=== PATIENT | male | born 1985 | race Hispanic/Latino ===

== ENCOUNTER 2018-09-13 17:55 | Emergency (ER) | payer SELFPAY ==
[2018-09-13 18:56] VITALS: BP 122/74
--- NOTE | 2018-09-13 21:14 | Emergency Department Report ---
ED ENT HPI - General Chief complaint: Dental/Oral Stated complaint: TOOTH PAIN Time Seen by Provider: 09/13/18 20:11 Source: patient Mode of arrival: Ambulatory Limitations: No Limitations - History of Present Illness Initial comments: Patient is a 32-year-old male presents to the emergency room with complaints of left lower dental pain that began a year ago. He states that it comes and goes. he states this episode began a week ago. He states that he previously had a cap on this tooth, but it fell off. He states he has not seen a dentist in 5 ye ars. He states he needs a tooth extraction on that tooth. Denies any fever or facial swelling. He denies any past medical history allergies medications. - Related Data Previous Rx's Medication Instructions Recorded Last Taken Type Acetaminophen/Codeine [Tylenol 1 tab PO Q6H PRN #10 tab 09/13/18 Unknown Rx /Codeine # 3 tab] Ibuprofen [Motrin 800 MG tab] 800 mg PO Q8HR PRN #20 tablet 09/13/18 Unknown Rx Penicillin Vk [Veetids TAB] 500 mg PO QID 7 Days #56 tablet 09/13/18 Unknown Rx Allergies Allergy/AdvReac Type Severity Reaction Status Date / Time No Known Allergies Allergy Unverified 09/13/18 17:57 ED Dental HPI - General Chief complaint: Dental/Oral Stated complaint: TOOTH PAIN Time Seen by Provider: 09/13/18 20:11 Source: patient Mode of arrival: Ambulatory Limitations: No Limitations - Related Data Previous Rx's Medication Instructions Recorded Last Taken Type Acetaminophen/Codeine [Tylenol 1 tab PO Q6H PRN #10 tab 09/13/18 Unknown Rx /Codeine # 3 tab] Ibuprofen [Motrin 800 MG tab] 800 mg PO Q8HR PRN #20 tablet 09/13/18 Unknown Rx Penicillin Vk [Veetids TAB] 500 mg PO QID 7 Days #56 tablet 09/13/18 Unknown Rx Allergies Allergy/AdvReac Type Severity Reaction Status Date / Time No Known Allergies Allergy Unverified 09/13/18 17:57 ED Review of Systems ROS: Stated complaint: TOOTH PAIN Other details as noted in HPI Comment: All other systems reviewed and negative ED Past Medical Hx - Past Medical History Previous Medical History?: No - Surgical History Past Surgical History?: No - Social History Smoking Status: Heavy Tobacco Smoker Substance Use Type: Alcohol, Marijuana - Medications Home Medications: Home Medications Medication Instructions Recorded Confirmed Last Taken Type Acetaminophen/Codeine [Tylenol 1 tab PO Q6H PRN #10 tab 09/13/18 Unknown Rx /Codeine # 3 tab] Ibuprofen [Motrin 800 MG tab] 800 mg PO Q8HR PRN #20 tablet 09/13/18 Unknown Rx Penicillin Vk [Veetids TAB] 500 mg PO QID 7 Days #56 tablet 09/13/18 Unknown Rx ED Physical Exam - General Limitations: No Limitations General appearance: alert, in no apparent distress - Head Head exam: Present: atraumatic, normocephalic - Eye Eye exam: Present: normal appearance - ENT ENT exam: Present: normal orophraynx, mucous membranes moist, other (very poor dentition, two cracked teeth on the left lower side with dental infection present, small area of edema present to the left lower cheek, uvula is midline, no uvular edema) - Respiratory Respiratory exam: Present: normal lung sounds bilaterally. Absent: respiratory distress, wheezes, rales, rhonchi, stridor, chest wall tenderness, accessory muscle use, decreased breath sounds, prolonged expiratory - Cardiovascular Cardiovascular Exam: Present: regular rate, normal rhythm, normal heart sounds. Absent: systolic murmur, diastolic murmur, rubs, gallop - Neurological Exam Neurological exam: Present: alert, oriented X3 - Psychiatric Psychiatric exam: Present: normal affect, normal mood - Skin Skin exam: Present: warm, dry, intact ED Course Vital Signs 09/13/18 18:52 Temperature 98.3 F Pulse Rate 58 L Respiratory 20 Rate Blood Pressure 122/74 O2 Sat by Pulse 98 Oximetry ED Medical Decision Making - Medical Decision Making Patient is a 32-year-old male presents to the emergency room with complaints of left lower dental pain that began a year ago. He states that it comes and goes. he states this episode began a week ago. He states that he previously had a cap on this tooth, but it fell off. He states he has not seen a dentist in 5 years. He states he needs a tooth extraction on that tooth. Denies any fever or facial swelling. He denies any past medical history allergies medications. on exam: very poor dentition, two cracked teeth on the left lower side with dental infection present, small area of edema present to the left lower cheek, uvula is midline, no uvular edema. appears to have start of early dental abscess. pt vitals are normal. tolerating secretions and PO intake without difficulty. pt given abx, anti-inflammatory, and pain medication. advised to take medication as prescribed. do not drive or operate heavy machinery while taking pain medication. follow up with a dentist in the next 2-3 days. it is ve ry important to follow up with a dentist for a permanent solution. return to the emergency room for any new or worsening symptoms. given list of community resources and list of community dental clinics. - Differential Diagnosis dental abscess, dental caries, dental infection, peritonsillar abscess Critical care attestation.: If time is entered above; I have spent that time in minutes in the direct care of this critically ill patient, excluding procedure time. ED Disposition Clinical Impression: Dental caries, Cracked tooth, Dental abscess Disposition: TO HOME OR SELFCARE Is pt being admited?: No Does the pt Need Aspirin: No Condition: Stable Instructions: Dental Abscess (ED), Dental Caries (ED) Additional Instructions: please take medication as prescribed. do not drive or operate heavy machinery while taking pain medication. follow up with a dentist in the next 2-3 days. it is very important to follow up with a dentist for a permanent solution. return to the emergency room for any new or worsening symptoms. given list of community resources and list of community dental clinics. Prescriptions: Ibuprofen [Motrin 800 MG tab] 800 mg PO Q8HR PRN #20 tablet PRN Reason: Pain, Moderate (4-6) Acetaminophen/Codeine [Tylenol /Codeine # 3 tab] 1 tab PO Q6H PRN #10 tab PRN Reason: Pain , Severe (7-10) Penicillin Vk [Veetids TAB] 500 mg PO QID 7 Days #56 tablet Referrals: ROBE BARRERA MD [Primary Care Provider] - 2-3 Days [facility] [Outside] - 2-3 Days [facility] [Outside] - 2-3 Days Time of Disposition: 21:15 Print Language: CENTRAL AFRICAN
== END 2018-09-13 21:23 | disposition home or self-care (01) ==
LOC: ED 17:55
DX: K03.81 Cracked tooth (principal); K02.9 Dental caries, unspecified; K04.7 Periapical abscess without sinus
CPT/HCPCS: 99282